=== PATIENT | male | born 1950 | race Caucasian/White ===

== ENCOUNTER 2020-05-31 16:24 | Emergency (ER) | payer OTHER ==
[2020-05-31 17:26] LABS: HEMOGLOBIN 15.3 gm/dl (14.0-17.5); RED BLOOD COUNT 5.08 M/UL (4.20-5.50); WHITE BLOOD COUNT 10.3 K/UL (4.5-11.0)
[2020-05-31 17:49] LABS: BUN/CREATININE RATIO 25 (0-10)
[2020-05-31] MEDS ORDERED: SUDOGEST PE10 MG PO (19:58)
== END 2020-05-31 20:55 | disposition home or self-care (01) ==
LOC: ER1 16:24
PROVIDERS: Physician Assistant
DX: R55 Syncope and collapse (principal); R42 Dizziness and giddiness; R09.81 Nasal congestion; I10 Essential (primary) hypertension; Z20.822 Contact with and (suspected) exposure to COVID-19
CPT/HCPCS: 70450; 71045; 80053; 81001; 82550; 82553; 83605; 83874; 84484; 85025; 87040; 87086; 93005; 99284; U0002